=== PATIENT | female | born 1995 | race Caucasian/White ===

== ENCOUNTER 2017-06-29 19:35 | Emergency (ER) | payer OTHER ==
[2017-06-29 19:43] VITALS: BP 140/83; PULSE 99; RESP 19; TEMP 98
[2017-06-29] MEDS ORDERED: CEPHALEXIN 500 MG CAP PO STA (20:11)
[2017-06-29] MEDS ORDERED: IBUPROFEN 600 MG TAB PO STA (20:11)
--- NOTE | 2017-06-29 20:13 | ED ---
General Adult HPI - General Chief complaint: Abdominal Pain Stated complaint: Poss.infection Time Seen by Provider: 06/29/17 19:45 Source: patient Mode of arrival: ambulatory Limitations: no limitations - History of Present Illness Initial comments: 21-year-old female patient presents to the emergency department today for evaluation of her incision site. Patient states approximate one week ago the left and of the incision seemed to open and has been draining pus. She states that the area is tender to the touch. She underwent on 2017 with a doctor at [facility] in [place]. States things the been going well. She denies any abdominal pain with this. Denies any fevers or chills. Denies any nausea or vomiting. She denies any abnormal vaginal bleeding or discharge. Patient denies any recent rash, shortness breath, chest pain, diarrhea, constipation, back pain, numbness, tingling, dizziness, weakness , hematuria, dysuria, urinary urgency, urinary frequency, headache, visual changes, or any other complaints. - Related Data Previous Rx's Medication Instructions Recorded Cephalexin [Keflex] 500 mg PO Q6H #40 cap 06/29/17 Allergies Allergy/AdvReac Type Severity Reaction Status Date / Time latex Allergy Rash/Hives Verified 06/29/17 20:15 Penicillins Allergy Swelling Verified 06/29/17 20:15 Review of Systems ROS Statement: Those systems with pertinent positive or pertinent negative responses have been documented in the HPI. ROS Other: All systems not noted in ROS Statement are negative. Past Medical History Past Medical History: No Reported History History of Any Multi-Drug Resistant Organisms: None Reported Past Surgical History: Section Past Psychological History: Depression Smoking Status: Never smoker Past Alcohol Use History: None Reported Past Drug Use History: None Reported General Exam Limitations: no limitations General appearance: alert, in no apparent distress, other (This is a well- developed, well-nourished, nontoxic appearing adult female patient in no acute distress. Vital signs upon presentation are temperature 98.0F, pulse 99, respirations 19, blood pressure 140/83, pulse ox 100% on room air.) Eye exam: Present: normal appearance, PERRL, EOMI. Absent: scleral icterus, conjunctival injection, periorbital swelling ENT exam: Present: normal exam, normal oropharynx, mucous membranes moist Respiratory exam: Present: normal lung sounds bilaterally. Absent: respiratory distress, wheezes, rales, rhonchi, stridor Cardiovascular Exam: Present: regular rate, normal rhythm, normal heart sounds. Absent: systolic murmur, diastolic murmur, rubs, gallop, clicks GI/Abdominal exam: Present: soft, normal bowel sounds, other (There is a horizontal incision at the suprapubic area. The left and the incision does show an open wound with very small amount of drainage. Abdomen is soft and nontender around the area. There is mild surrounding erythema.). Absent: distended, tenderness, guarding, rebound, rigid Neurological exam: Present: alert, oriented X3, CN II-XII intact Psychiatric exam: Present: normal affect, normal mood Skin exam: Present: warm, dry, intact, normal color. Absent: rash Course Vital Signs 06/29/17 19:38 Temperature 98.0 F Pulse Rate 99 Respiratory 19 Rate Blood Pressure 140/83 O2 Sat by Pulse 100 Oximetry Medical Decision Making - Medical Decision Making 21-year-old female patient presented for evaluation of her incision site. Physical examination does reveal an open wound area to the left end of the incision. The site shows very minimal drainage. There is minimal surrounding erythema. We will start her on Keflex. We will discharge her home as she is afebrile and nontoxic. She is instructed to follow-up with her OB/ [facility] as soon as possible. She is instructed to return here immediately for any new, worsening, or concerning symptoms. Return parameters discussed in detail. She verbalizes understanding and agrees with this plan. Disposition Clinical Impression: Surgical wound infection Disposition: HOME SELF-CARE Condition: Good Instructions: Acute Wound Care (ED) Additional Instructions: Take antibiotic prescription in full. Continue taking ibuprofen for pain control. Keep wound clean and dry. Follow up with your OBGYN as soon as possible. Return here immediately for any new, worsening, or concerning symptoms. Prescriptions: Cephalexin [Keflex] 500 mg PO Q6H #40 cap Referrals: None,Stated [Primary Care Provider] - 1-2 days Time of Disposition: 20:13
== END 2017-06-29 20:33 | disposition home or self-care (01) ==
LOC: EC 19:35
DX: T81.4XXA Infection following a procedure, initial encounter (principal); Z88.0 Allergy status to penicillin; Z91.040 Latex allergy status; Z98.890 Other specified postprocedural states
CPT/HCPCS: 87070; 87077; 87186; 87205; 99284

== ENCOUNTER 2020-08-19 14:16 | Emergency (ER) | payer OTHER ==
[2020-08-19 14:26] VITALS: RESP 18
[2020-08-19 15:21] LABS: Appearance,Urine Clear (Clear); Bacteria,Urine Rare /hpf; Bilirubin,Urine Negative (Negative); Blood,Urine Negative (Negative); Color,Urine Yellow; Glucose,Urine (UA) Negative (Negative); Ketones,Urine Negative (Negative); Leukocyte Esterase,Urine Large (Negative); Mucus,Urine Rare /hpf; Nitrite,Urine Negative (Negative); PH, Urine 6.5 (5.0-8.0); Protein,Urine Negative (Negative); RBC,Urine 2 /hpf (0-5); Specific Gravity,Urine 1.027 (1.001-1.035); Squamous Epithelial Cell,Urine 7 /hpf (0-4); Urobilinogen,Urine <2.0 mg/dL (<2.0); WBC,Urine 20 /hpf (0-5)
[2020-08-19 15:24] LABS: Basophils % (A) 0 %; Eosinophils % (A) 1 %; HCT 42.3 % (34.0-46.0); HGB 14.5 gm/dL (11.4-16.0); Lymphocytes # (A) 2.1 k/uL (1.0-4.8); Lymphocytes % (A) 31 %; MCH 29.1 pg (25.0-35.0); MCHC 34.3 g/dL (31.0-37.0); MCV 84.7 fL (80.0-100.0); Mean Platelet Volume 6.8; Monocytes # (A) 0.5 k/uL (0-1.0); Monocytes % (A) 7 %; Neutrophils # (A) 4.1 k/uL (1.3-7.7); Neutrophils % (A) 60 %; Platelet Count 228 k/uL (150-450); RBC 4.99 m/uL (3.80-5.40); WBC 6.9 k/uL (3.8-10.6)
[2020-08-19 15:34] LABS: ALT 17 U/L (4-34); AST 25 U/L (14-36); African American GFR (CKD) >90 (>60 ml/min/1.73 sqM); Albumin 4.7 g/dL (3.5-5.0); Alkaline Phosphatase 71 U/L (38-126); Amylase 54 U/L (30-110); Anion Gap 8 mmol/L; Blood Urea Nitrogen 13 mg/dL (7-17); Calcium 9.7 mg/dL (8.4-10.2); Carbon Dioxide 28 mmol/L (22-30); Chloride 104 mmol/L (98-107); Glucose 97 mg/dL (74-99); Lipase 145 U/L (23-300); Non-African American GFR(CKD) >90 (>60 ml/min/1.73 sqM); Potassium 3.5 mmol/L (3.5-5.1); Sodium 140 mmol/L (137-145); Total Bilirubin 0.5 mg/dL (0.2-1.3)
[2020-08-19 15:51] LABS: HCG,Quantitative Serum <2.4 mIU/mL
--- NOTE | 2020-08-19 16:29 | US ---
EXAMINATION TYPE: US transvaginal DATE OF EXAM: 08/19/2020 COMPARISON: NONE CLINICAL HISTORY: abdominal pain. Pelvic pain TECHNIQUE: Transvaginal (TV). Date of LMP: 07/26/2020 EXAM MEASUREMENTS: Uterus: 7.6 x 4.0 x 4.8 cm Endometrial Stripe: .7 cm Right Ovary: 2.4 x 1.3 x 1.8 cm Left Ovary: 2.4 x 1.6 x 1.9 cm 1. Uterus: Anteverted wnl 2. Endometrium: wnl 3. Right Ovary: wnl 4. Left Ovary: wnl Spectral, color and waveform doppler imaging shows good arterial and venous flow within the ovaries . 5. Bilateral Adnexa: wnl 6. Posterior cul-de-sac: wnl Endometrial stripe within normal limits for secretory phase of menstrual cycle. Heterogeneous normal size uterus. Both ovaries seen with scattered small peripheral follicles. No adnexal masses noted. IMPRESSION: Unremarkable study.
--- NOTE | 2020-08-19 16:35 | ED ---
General Adult HPI - General Chief complaint: Abdominal Pain Stated complaint: abdominal pain Time Seen by Provider: 08/19/20 14:44 Source: patient Mode of arrival: ambulatory Limitations: no limitations - History of Present Illness Initial comments: 24-year-old female presents to the emergency room for a chief complaint of lower abdominal pain. Patient reports this has been ongoing for 11 days now. States it feels like menstrual cramping. Patient states she is due to start her cycle in 6 days. Patient states it comes and goes but today to sensitivity going away. Patient denies fevers. Denies back pain. Denies nausea vomiting diarrhea. Patient denies any vaginal discharge or concern for STDs. Patient denies any chance of . States she had 2 negatives already. Patient has no other complaints at this time including shortness of breath, chest pain, nausea or vomiting, headache, or visual changes. - Related Data Previous Rx's Medication Instructions Recorded Sulfamethox-Tmp 800-160Mg [Bactrim 1 tab PO Q12HR #10 tab 08/19/20 DS 800-160 mg] Allergies Allergy/AdvReac Type Severity Reaction Status Date / Time latex Allergy Rash/Hives Verified 08/19/20 15:56 Penicillins Allergy Swelling Verified 08/19/20 15:56 Review of Systems ROS Statement: Those systems with pertinent positive or pertinent negative responses have been documented in the HPI. ROS Other: All systems not noted in ROS Statement are negative. Past Medical History Past Medical History: No Reported History History of Any Multi-Drug Resistant Organisms: None Reported Date of last positivie culture/infection: 06/29/17 MDRO Source:: ABDOMEN Past Surgical History: Section Past Psychological History: Depression Smoking Status: Never smoker Past Alcohol Use History: None Reported Past Drug Use History: None Reported General Exam Limitations: no limitations General appearance: alert, in no apparent distress Head exam: Present: atraumatic, normocephalic, normal inspection Eye exam: Present: normal appearance, PERRL, EOMI. Absent: scleral icterus, conjunctival injection, periorbital swelling ENT exam: Present: normal exam, mucous membranes moist Neck exam: Present: normal inspection, full ROM. Absent: tenderness, meningismus, lymphadenopathy Respiratory exam: Present: normal lung sounds bilaterally. Absent: respiratory distress, wheezes, rales, rhonchi, stridor Cardiovascular Exam: Present: regular rate, normal rhythm, normal heart sounds. Absent: systolic murmur, diastolic murmur, rubs, gallop, clicks GI/Abdominal exam: Present: soft, tenderness (Generalized minimal lower abdominal tenderness without guarding or rebound. No upper abdominal tenderness.), normal bowel sounds. Absent: distended, guarding, rebound, rigid Neurological exam: Present: alert Course Vital Signs 08/19/20 14:22 Temperature 97.9 F Pulse Rate 80 Respiratory 18 Rate Blood Pressure 145/95 O2 Sat by Pulse 99 Oximetry Medical Decision Making - Medical Decision Making Vitals are stable. Patient is afebrile. Physical exam pertinent for minimal lower abdominal tenderness without guarding or rebound. CBC is unremarkable. White count is normal at 6. CMP is unremarkable. HCG is negative. Urinalysis does show some possible evidence of urinary tract infection and patient will be treated accordingly. Ultrasound was obtained which was unremarkable. No evidence of torsion or cysts. At this time patient is afebrile with a normal white count with symptoms ongoing for 11 days, I do not currently suspect appendicitis. Patient is stable for outpatient follow-up. She'll follow up with primary care. She has an appointment tomorrow morning. She'll return here for any worsening symptoms. I discussed this case with attending Dr. Mendoza who agrees with this assessment and treatment plan. - Lab Data Result diagrams: 08/19/20 15:11 08/19/20 15:11 Lab Results 08/19/20 08/19/20 08/19/20 Range/Units 14:48 14:48 15:11 WBC 6.9 (3.8-10.6) k/uL RBC 4.99 (3.80-5.40) m/uL Hgb 14.5 (11.4-16.0) gm/dL Hct 42.3 (34.0-46.0) % MCV 84.7 (80.0-100.0) fL MCH 29.1 (25.0-35.0) pg MCHC 34.3 (31.0-37.0) g/dL RDW 13.0 (11.5-15.5) % Plt Count 228 (150-450) k/uL MPV 6.8 Neutrophils % 60 % Lymphocytes % 31 % Monocytes % 7 % Eosinophils % 1 % Basophils % 0 % Neutrophils # 4.1 (1.3-7.7) k/uL Lymphocytes # 2.1 (1.0-4.8) k/uL Monocytes # 0.5 (0-1.0) k/uL Eosinophils # 0.0 (0-0.7) k/uL Basophils # 0.0 (0-0.2) k/uL Sodium (137-145) mmol/L Potassium (3.5-5.1) mmol/L Chloride (98-107) mmol/L Carbon Dioxide (22-30) mmol/L Anion Gap mmol/L BUN (7-17) mg/dL Creatinine (0.52-1.04) mg/dL Est GFR (CKD-EPI)AfAm (>60 ml/min/1.73 sqM) Est GFR (CKD-EPI)NonAf (>60 ml/min/1.73 sqM) Glucose (74-99) mg/dL Calcium (8.4-10.2) mg/dL Total Bilirubin (0.2-1.3) mg/dL AST (14-36) U/L ALT (4-34) U/L Alkaline Phosphatase (38-126) U/L Total Protein (6.3-8.2) g/dL Albumin (3.5-5.0) g/dL Amylase (30-110) U/L Lipase (23-300) U/L HCG, Quant mIU/mL Urine Color Yellow Urine Appearance Clear (Clear) Urine pH 6.5 (5.0-8.0) Ur Specific [place] 1.027 (1.001-1.035) Urine Protein Negative (Negative) Urine Glucose (UA) Negative (Negative) Urine Ketones Negative (Negative) Urine Blood Negative (Negative) Urine Nitrite Negative (Negative) Urine Bilirubin Negative (Negative) Urine Urobilinogen <2.0 (<2.0) mg/dL Ur Leukocyte Esterase Large H (Negative) Urine RBC 2 (0-5) /hpf Urine WBC 20 H (0-5) /hpf Ur Squamous Epith Cells 7 H (0-4) /hpf Urine Bacteria Rare H (None) /hpf Urine Mucus Rare H (None) /hpf Urine HCG, Qual Not Detected (Not Detectd) 08/19/20 Range/Units 15:11 WBC (3.8-10.6) k/uL RBC (3.80-5.40) m/uL Hgb (11.4-16.0) gm/dL Hct (34.0-46.0) % MCV (80.0-100.0) fL MCH (25.0-35.0) pg MCHC (31.0-37.0) g/dL RDW (11.5-15.5) % Plt Count (150-450) k/uL MPV Neutrophils % % Lymphocytes % % Monocytes % % Eosinophils % % Basophils % % Neutrophils # (1.3-7.7) k/uL Lymphocytes # (1.0-4.8) k/uL Monocytes # (0-1.0) k/uL Eosinophils # (0-0.7) k/uL Basophils # (0-0.2) k/uL Sodium 140 (137-145) mmol/L Potassium 3.5 (3.5-5.1) mmol/L Chloride 104 (98-107) mmol/L Carbon Dioxide 28 (22-30) mmol/L Anion Gap 8 mmol/L BUN 13 (7-17) mg/dL Creatinine 0.55 (0.52-1.04) mg/dL Est GFR (CKD-EPI)AfAm >90 (>60 ml/min/1.73 sqM) Est GFR (CKD-EPI)NonAf >90 (>60 ml/min/1.73 sqM) Glucose 97 (74-99) mg/dL Calcium 9.7 (8.4-10.2) mg/dL Total Bilirubin 0.5 (0.2-1.3) mg/dL AST 25 (14-36) U/L ALT 17 (4-34) U/L Alkaline Phosphatase 71 (38-126) U/L Total Protein 8.0 (6.3-8.2) g/dL Albumin 4.7 (3.5-5.0) g/dL Amylase 54 (30-110) U/L Lipase 145 (23-300) U/L HCG, Quant <2.4 mIU/mL Urine Color Urine Appearance (Clear) Urine pH (5.0-8.0) Ur Specific [place] (1.001-1.035) Urine Protein (Negative) Urine Glucose (UA) (Negative) Urine Ketones (Negative) Urine Blood (Negative) Urine Nitrite (Negative) Urine Bilirubin (Negative) Urine Urobilinogen (<2.0) mg/dL Ur Leukocyte Esterase (Negative) Urine RBC (0-5) /hpf Urine WBC (0-5) /hpf Ur Squamous Epith Cells (0-4) /hpf Urine Bacteria (None) /hpf Urine Mucus (None) /hpf Urine HCG, Qual (Not Detectd) Disposition Clinical Impression: Abdominal pain, UTI (urinary tract infection) Disposition: HOME SELF-CARE Condition: Good Instructions (If sedation given, give patient instructions): Abdominal Pain (ED) Additional Instructions: Please take Motrin and Tylenol for pain. Please follow-up with your doctor in 1-2 days. Return to the emergency room for any worsening symptoms. Prescriptions: Sulfamethox-Tmp 800-160Mg [Bactrim DS 800-160 mg] 1 tab PO Q12HR #10 tab Is patient prescribed a controlled substance at d/c from ED?: No Referrals: Dunia Rush DO [Primary Care Provider] - 1-2 days Time of Disposition: 16:38
[2020-08-19] MEDS ORDERED: SULFAMETH-TMP DS STARTER PACK 2 TAB BTL PO STA (16:42)
[2020-08-19] MEDS ORDERED: KETOROLAC 15 MG/ML 1 ML VIAL IVP STA (16:46)
[2020-08-19 17:02] VITALS: BP 120/81; PULSE 92; TEMP 98
[2020-08-20 15:00] LABS: C. trachomatis,PCR Negative (Neg,Equiv); Chlamydia trachomatis Source Urine; N. gonorrhoeae,PCR Negative (Neg,Equiv); Neisseria Source Urine
== END 2020-08-19 17:03 | disposition home or self-care (01) ==
LOC: EC 14:16 → SUPCPDRO 14:16 → EC 17:03
DX: N39.0 Urinary tract infection, site not specified (principal); F32.9 Major depressive disorder, single episode, unspecified; Z88.0 Allergy status to penicillin
CPT/HCPCS: 36415; 80053; 82150; 83690; 85025; 81001; 81025; 84702; 87491; 87591; 87086; 93975; 76830; 99284; 96374; J1885

== ENCOUNTER 2021-07-05 16:05 | Outpatient (CLI) | payer OTHER ==
[2021-07-05 17:08] LABS: Appearance,Urine Cloudy (Clear); Bacteria,Urine Few /hpf; Bilirubin,Urine Negative (Negative); Blood,Urine Negative (Negative); Color,Urine Yellow; Glucose,Urine (UA) Negative (Negative); Ketones,Urine 2+ (Negative); Leukocyte Esterase,Urine Large (Negative); Mucus,Urine Many /hpf; Nitrite,Urine Negative (Negative); Protein,Urine 1+ (Negative); RBC,Urine 3 /hpf (0-5); Specific Gravity,Urine 1.033 (1.001-1.035); Squamous Epithelial Cell,Urine 21 /hpf (0-4); WBC,Urine 53 /hpf (0-5)
[2021-07-05 17:56] VITALS: BP 132/76; PULSE 90; RESP 18; TEMP 97.3
--- NOTE | 2021-07-05 18:02 | P.MSEPDOC ---
Presenting Problems - Arrival Data Date of Arrival on Unit: 07/05/21 Time of Arrival on Unit: 16:00 Mode of Transport: Ambulatory - Complaint OB-Reason for Admission/Chief Complaint: Pain Comment: Leg pain - groin, low abdominal pain, bruised feeling in the bladder, vaginal pain. Medical History - Information : 3 Para: 2 Term: 1 : 1 Abortions: Spontaneous or Elective: 0 Number of Living Children: 2 - Gestational Age Gestational Age by ROSALINA (wks/days): 26 Weeks and 0 Days - History Complications: Prior , Prior Review of Systems - Review of Systems Constitutional: No problems Breast: No problems ENT: No problems Cardiovascular: No problems Respiratory: No problems Gastrointestinal: No problems Genitourinary: No problems Musculoskeletal: No problems Neurological: No problems Skin: No problems Vital Signs - Temperature Temperature: 97.3 F Temperature Source: Temporal Artery Scan - Pulse Right Sitting Brachial Pulse Rate: 90 Pulse Assessment Method: Automatic Cuff - Respirations Respiratory Rate: 18 Oxygen Delivery Method: Room Air O2 Sat by Pulse Oximetry: 100 - Blood Pressure Right Arm Sitting Blood Pressure: 132/76 Blood Pressure Mean: 94 Blood Pressure Source: Automatic Cuff Medical Screen Scoring - Cervical Exam Dilation (cm): 0 Effacement (%): 0 Station: -3 - Assessment - Baby A Baseline FHR: 140 Heart Rate - NICHD Category: Category I (Normal) NST: Reactive Physician Notification - Physician Notified Physician Notified Date: 07/05/21 Physician Notified Time: 17:40 Physician: Ashia Gutierrez New Order Received: Yes - Notification Comment Comment: Cervix closed, UA results reviewed. Ok to dc home, increase po fluids, rest, tylenol as directed and follow up with Dr Sauer as scheduled. Maternal Triage Index - Maternal Triage Index Presenting for scheduled procedure w/no complaint: No - Stat/Priority 1 Stat Priority 1: No - Urgent/Priority 2 Urgent Priority 2: No - Prompt/Priority 3 Prompt Priority 3: No - Non-Urgent/Priority 4 Non-Urgent Priority 4: No - Scheduled/Requesting Priority 5 Scheduled/Requesting Priority 5: No Disposition - Disposition OB Disposition: Discharge to home Discharge Date: 07/05/21 Discharge Time: 17:45 I agree with the RN Medical Screening Exam: Yes Case reviewed; plan agreed upon as documented in EMR&OBIX.: Yes Diagnosis: RELATED CONDITIONS, UNSPECIFIED, SECOND TRIMESTER
== END 2021-07-05 17:45 | disposition home or self-care (01) ==
LOC: FBPOP 16:05
PROVIDERS: ATTEND Obstetrics & Gynecology
DX: O26.892 Other specified pregnancy related conditions, second trimester (principal); R10.30 Lower abdominal pain, unspecified; R10.2 Pelvic and perineal pain; Z3A.26 26 weeks gestation of pregnancy; Z91.040 Latex allergy status; Z88.0 Allergy status to penicillin
CPT/HCPCS: 81001; 99213

== ENCOUNTER 2021-08-22 15:05 | Outpatient (CLI) | payer OTHER ==
[2021-08-22 17:23] VITALS: BP 129/71; PULSE 90; RESP 16; TEMP 98.5
--- NOTE | 2021-08-25 08:53 | P.MSEPDOC ---
Presenting Problems - Arrival Data Date of Arrival on Unit: 08/22/21 Time of Arrival on Unit: 15:13 Mode of Transport: Wheelchair - Complaint OB-Reason for Admission/Chief Complaint: Other Comment: pt arrived c/o tripping on dogs water dish and fall pt has a scuff on her right knee and left hand. pt also c/o some mucus pinkish discharge when she wiped and c/o some mild cramping Medical History - Information : 3 Para: 2 Term: 1 : 1 Number of Living Children: 2 - Gestational Age Gestational Age by ROSALINA (wks/days): 32 Weeks and 5 Days Review of Systems - Review of Systems Constitutional: No problems Breast: No problems ENT: No problems Cardiovascular: No problems Respiratory: No problems Gastrointestinal: No problems Genitourinary: No problems Musculoskeletal: No problems Neurological: No problems Skin: No problems Vital Signs - Temperature Temperature: 98.5 F Temperature Source: Oral - Pulse Right Brachial Pulse Rate: 90 Pulse Assessment Method: Automatic Cuff - Respirations Respiratory Rate: 16 Oxygen Delivery Method: Room Air O2 Sat by Pulse Oximetry: 98 - Blood Pressure Right Arm Blood Pressure: 129/71 Blood Pressure Mean: 90 Blood Pressure Source: Automatic Cuff Medical Screen Scoring - Cervical Exam Dilation (cm): 0.5 Effacement (%): 50 Membranes: Intact - Uterine Contractions Frequency From (mins): 0 Frequency To (mins): 0 Duration From (seconds): 0 Resting: Soft to palpation - Assessment - Baby A Baseline FHR: 140 Heart Rate - NICHD Category: Category I (Normal) Physician Notification - Physician Notified Physician Notified Date: 08/22/21 Physician Notified Time: 16:23 Physician: Dr Sauer New Order Received: Yes - Notification Comment Comment: may discharged to home with instructions Maternal Triage Index - Urgent/Priority 2 Urgent Priority 2: Yes Provider Notified: Dr Sauer Provider Notified Time: 16:23 Criteria Met for Priority 2: pt 32 5/7 weeks abd soft no active bleeding. reactive NST CERVIX FT THICK WITH NO blood noted on exam glove. pt discharged with instructions and to keep f/u appointment with Dr Sauer Disposition - Disposition OB Disposition: Discharge to home Discharge Date: 08/22/21 Discharge Time: 17:09 I agree with the RN Medical Screening Exam: Yes Case reviewed; plan agreed upon as documented in EMR&OBIX.: Yes Diagnosis: FALL SAME LEV FROM SLIP/TRIP W/O STRIKE AGAINST OBJECT, INIT
== END 2021-08-22 17:09 | disposition home or self-care (01) ==
LOC: FBPOP 15:05
PROVIDERS: ATTEND Obstetrics & Gynecology
DX: O9A.213 Injury, poisoning and certain other consequences of external causes complicating pregnancy, third trimester (principal); S80.211A Abrasion, right knee, initial encounter; N89.8 Other specified noninflammatory disorders of vagina; Z3A.32 32 weeks gestation of pregnancy; Z88.0 Allergy status to penicillin; Z91.040 Latex allergy status
CPT/HCPCS: 59025; G0463; 99213

== ENCOUNTER 2021-09-19 15:55 | Inpatient (IN) | payer OTHER ==
[2021-09-19] MEDS ORDERED: CITRIC ACID-SODIUM CITRATE 15 ML CUP PO ONE (17:36)
[2021-09-19 18:19] LABS: Basophils % (A) 0 %; Eosinophils % (A) 0 %; HCT 35.6 % (34.0-46.0); HGB 11.9 gm/dL (11.4-16.0); Lymphocytes # (A) 1.3 k/uL (1.0-4.8); Lymphocytes % (A) 17 %; MCH 28.7 pg (25.0-35.0); MCHC 33.4 g/dL (31.0-37.0); MCV 86.1 fL (80.0-100.0); Mean Platelet Volume 7.4; Monocytes # (A) 0.5 k/uL (0-1.0); Monocytes % (A) 7 %; Neutrophils # (A) 5.6 k/uL (1.3-7.7); Neutrophils % (A) 72 %; Platelet Count 242 k/uL (150-450); RBC 4.13 m/uL (3.80-5.40); RDW 14.5 % (11.5-15.5); WBC 7.7 k/uL (3.8-10.6)
--- NOTE | 2021-09-19 18:26 | P.HPOB ---
History of Present Illness H&P Date: 09/19/21 Chief Complaint: Contractions This is a 25-year-old female 3 para 2 with an estimated date of confinement of 10/11/2021, estimated gestational age of 37-6/7 weeks, who presents to labor and delivery with complaints of contractions that have been every 5 minutes for the past few hours and are getting stronger. course has been essentially uncomplicated. She has had a lot of pelvic and lower abdominal pain throughout her . Her last was complicated by an emergency classical section for twins at 28 weeks. labs: Hepatitis B surface antigen-negative RPR-nonreactive Rubella-immune Blood type-B+ Antibody screen-negative HIV-nonreactive Hemoglobin-12.3 Random glucose-86 GC/chlamydia/trickle on his-negative One hour Glucola-96 Group B streptococcus-positive Obstetrical history: She 3 P2. History of 1 vaginal delivery at term without complication. Her second was complicated by the emergency classical at 28 weeks for twin gestation with twin-twin transfusion. Gynecologic history: No history of sexual transmitted diseases Social history: She is . She works part-time self-employed working from home. Review of Systems Constitutional: Denies chills, Denies fever Eyes: denies blurred vision, denies pain Ears, nose, mouth and throat: Denies headache, Denies sore throat Cardiovascular: Denies chest pain, Denies shortness of breath Respiratory: Denies cough Gastrointestinal: Reports abdominal pain Genitourinary: Reports pelvic pain, Reports Musculoskeletal: Reports low back pain Integumentary: Denies pruritus, Denies rash Neurological: Denies numbness, Denies weakness Psychiatric: Denies anxiety, Denies depression Past Medical History Past Medical History: No Reported History History of Any Multi-Drug Resistant Organisms: None Reported Date of last positivie culture/infection: 06/29/17 MDRO Source:: ABDOMEN Past Surgical History: Section Past Psychological History: No Psychological Hx Reported Smoking Status: Never smoker Past Alcohol Use History: None Reported Past Drug Use History: None Reported - Past Family History Mother Family Medical History: Hypertension Medications and Allergies Home Medications Medication Instructions Recorded Confirmed Type No Known Home Medications 08/22/21 09/19/21 History Allergies Allergy/AdvReac Type Severity Reaction Status Date / Time latex Allergy Rash/Hives Verified 08/22/21 15:20 Penicillins Allergy Anaphylaxis Verified 09/19/21 16:12 Exam Osteopathic Statement: *. No significant issues noted on an osteopathic structural exam other than those noted in the History and Physical/Consult. Intake and Output 09/19/21 09/19/21 09/19/21 06:59 14:59 22:59 Other: Weight 88.451 kg HEENT: Within normal limits Heart: Regular rate and rhythm Lungs: Clear to auscultation bilaterally Abdomen: Cervix: Initially in triage she was 1-1/2 cm and now is 3 cm/60%/-2 station heart tones: Category 1 Contractions: Every 3-5 minutes Extremities: Negative Homans Assessment and Plan (1) 37 weeks gestation of Current Visit: Yes Status: Acute Code(s): Z3A.37 - 37 WEEKS GESTATION OF SNOMED Code(s): 86710263 (2) Previous delivery affecting Current Visit: Yes Status: Acute Code(s): O34.219 - MATERNAL CARE FOR UNSP TYPE SCAR FROM PREVIOUS DEL SNOMED Code(s): 826068342 Plan: Admission for repeat section due to previous classical section and active labor. I have discussed the risks, benefits, and alternative therapies for the above- mentioned procedure and for both sedation/anesthesia as well as necessary blood products administration, if indicated, as they pertain to this patient. The patient has indicated her understanding and acceptance of the risks and procedures discussed.
[2021-09-19] MEDS ORDERED: OXYTOCIN 10 UNIT/ML 1 ML VIAL ONE (18:30)
[2021-09-19] MEDS ORDERED: KETOROLAC 15 MG/ML 1 ML VIAL ONE (18:30)
[2021-09-19] MEDS ORDERED: LACTATED RINGERS 1,000 ML IV ONE (18:30)
[2021-09-19] MEDS ORDERED: MORPHINE SULFATE (PF) 0.3 MG/0.3 ML SYR ONE (18:30)
[2021-09-19] MEDS ORDERED: ONDANSETRON 4 MG/2 ML VIAL ONE (18:30)
[2021-09-19] MEDS ORDERED: HYDROmorphone 0.5 MG/0.5 ML SYRINGE IVP PRN ×2 (18:57→19:55)
[2021-09-19] MEDS ORDERED: ONDANSETRON 4 MG/2 ML VIAL IVP PRN ×2 (18:57→19:55)
[2021-09-19] MEDS ORDERED: diphenhydrAMINE 50 MG/ML 1 ML VIAL IVP PRN ×3 (18:57→19:55)
[2021-09-19] MEDS ORDERED: NALOXONE 0.4 MG/ML 1 ML VIAL IV PRN ×2 (18:57→19:55)
--- NOTE | 2021-09-19 19:22 | P.OP ---
Date of Procedure: 09/19/21 Preoperative Diagnosis: 1. Intrauterine at 36-6/7 weeks. 2. Previous classical . 3. Active labor. Postoperative Diagnosis: Same Procedure(s) Performed: Repeat low transverse section Anesthesia: spinal (Duramorph) Surgeon: Danica Sauer Medical Manager #1: Mony Diaz Estimated Blood Loss (ml): 500 Pathology: none sent Condition: stable Disposition: floor Indications for Procedure: This is a 25-year-old female 3 para 2 at 36-6/7 weeks who presented in active labor with complaints of contractions every 5 minutes for several hours. Upon arrival to triage she made cervical change from 1-1/2-3 cm within an hour's time and was breathing through her contractions. She denied any rupture of membranes. She does have a history of a previous classical section due to twin gestation at 28 weeks with her previous . I have discussed the risks, benefits, and alternative therapies for the above- mentioned procedure and for both sedation/anesthesia as well as necessary blood products administration, if indicated, as they pertain to this patient. The patient has indicated her understanding and acceptance of the risks and procedures discussed. Operative Findings: A viable female is noted in the vertex presentation with scores of 8 at 1 minute and 9 at 5 minutes and infant weight of 5 lbs. 9 oz. Normal uterus tubes and ovaries are noted. There is noted to be some omental adhesions to the anterior abdominal wall and the lower uterine segment. Description of Procedure: The patient is taken to the operating room where she is placed in the dorsal supine position with leftward tilt after spinal Duramorph anesthesia is given. She is prepped and draped in the normal sterile fashion. Skin was tested and found to be adequately anesthetized. A Pfannenstiel skin incision was made with a scalpel. A second knife was used to carry the incision down to the underlying layer of fascia through the previous laparotomy scar. The fascia was nicked in the midline with a scalpel and then extended laterally bilaterally with Woo scissors. The anterior lip of the fascia was grasped with 2 Mary Alice clamps and then dissected off the underlying rectus muscle in the midline with Woo scissors. The inferior aspect of the fascial incision was grasped with 2 Mary Alice clamps and dissected off the underlying rectus muscle and the midline with Woo scissors. Omentum is noted to be adherent to the anterior abdominal wall. Peritoneum regarding then entered in the dissection of the rectus muscles. The incision is extended superiorly and inferiorly with Metzenbaum scissors. Next a DeLee retractor is placed. The vesicouterine peritoneum is entered sharply with Metzenbaum scissors and extended laterally bilaterally with Metzenbaum scissors and then the bladder flap is pushed inferiorly. There were several omental adhesions to the lower uterine segment that were removed with Bovie cautery. The lower uterine segment is incised in transverse fashion with the scalpel and then bluntly entered with a hemostat. Clear fluid is noted. The incision was then extended laterally bilaterally with 2 fingers. Next the infant's head is delivered through the incision. Nose and mouth are bulb suctioned. The remainder of the infant is easily delivered and placed on mother's abdomen. Cord is clamped and cut. Infant is taken to warmer by nursing staff. Uterine fundus is gently massaged and placenta is delivered manually. Uterus is exteriorized and cleared of all clots and debris. Uterine incision is closed with 0 Vicryl suture in a running locked fashion. A second layer of 0 Vicryl suture is used in a running fashion for hemostasis. A couple interrupted stitches are also placed above the incision on the uterine wall where previous adhesion had been removed. Due to the previous adhesions, the vesicouterine peritoneum was not reapproximated. Posterior cul-de-sac is suctioned of all clots and debris. Uterus is returned to the abdomen. Incision is noted to be hemostatic. A piece of Interceed is placed over the uterine incision to prevent adhesions. Peritoneal layer is closed with 0 Vicryl suture in a running fash ion. Muscle layer is reapproximated with 0 Vicryl suture in interrupted fashion. Fascia layer is then closed with 0 PDS suture with 2 sutures meeting in the midline and the knots buried in either side and in the midline. The subcutaneous tissue was then closed with 2-0 Vicryl suture. Skin layer was then closed with андрей. All sponge and needle counts are correct. The patient is taken to recovery room in stable condition.
[2021-09-19] MEDS: LACTATED RINGERS 1,000 ML IV SCH (19:25)
[2021-09-19] MEDS ORDERED: METOCLOPRAMIDE 5 MG/ML 2 ML VIAL IVP PRN (19:55)
[2021-09-19] MEDS ORDERED: HYDROmorphone 1 MG/ML 1 ML SYRINGE IVP PRN (19:55)
[2021-09-19] MEDS ORDERED: diphenhydrAMINE 50 MG CAP PO PRN (19:55)
[2021-09-19] MEDS ORDERED: LACTATED RINGERS 1,000 ML IV SCH (19:55)
[2021-09-19] MEDS ORDERED: ZOLPIDEM 5 MG TAB PO PRN (19:55)
[2021-09-19] MEDS ORDERED: LANOLIN CREAM 5 GM TUBE TOPICAL PRN (19:55)
[2021-09-19] MEDS ORDERED: SIMETHICONE 80 MG CHEWABLE PO PRN (19:55)
[2021-09-19] MEDS ORDERED: diphenhydrAMINE 25 MG CAP PO PRN (19:55)
[2021-09-19] MEDS ORDERED: OXYTOCIN 30 UNITS/500 ML NS 30 UNIT in SALINE 1 500ML.BAG IV SCH (19:55)
[2021-09-19] MEDS: SENNOSIDES-DOCUSATE SODIUM 1 EACH TAB PO SCH (21:00)
--- NOTE | 2021-09-19 21:40 | P.MSEPDOC ---
Presenting Problems - Arrival Data Date of Arrival on Unit: 09/19/21 Time of Arrival on Unit: 15:55 Mode of Transport: Ambulatory - Complaint OB-Reason for Admission/Chief Complaint: Possible Onset of Labor Comment: pt presents to triage for contractions and tighening in abdomen Medical History - Information : 3 Para: 3 Term: 1 : 2 - Gestational Age Gestational Age by ROSALINA (wks/days): 36 Weeks and 6 Days - History Complications: Prior , Prior Comment: classical scar with previous section for twins, both delivered at 26 weeks, baby B passed after delivery Review of Systems - Review of Systems Constitutional: No problems Breast: No problems ENT: No problems Cardiovascular: No problems Respiratory: No problems Gastrointestinal: No problems Genitourinary: No problems Musculoskeletal: No problems Neurological: No problems Skin: No problems Vital Signs - Temperature Temperature: 97.8 F Temperature Source: Temporal Artery Scan - Pulse Right Brachial Pulse Rate: 85 Pulse Assessment Method: Pulse Oximetry - Respirations Respiratory Rate: 16 Oxygen Delivery Method: Room Air O2 Sat by Pulse Oximetry: 99 - Blood Pressure Right Arm Blood Pressure: 107/57 Blood Pressure Mean: 73 Blood Pressure Source: Automatic Cuff Medical Screen Scoring - Cervical Exam Dilation (cm): 3 Effacement (%): 50 Station: -2 Membranes: Intact - Uterine Contractions Frequency From (mins): 3 Frequency To (mins): 7 Duration From (seconds): 50 Duration To (seconds): 80 Intensity: Mild Resting: Soft to palpation - Assessment - Baby A Baseline FHR: 135 Heart Rate - NICHD Category: Category I (Normal) NST: Reactive Physician Notification - Physician Notified Physician Notified Date: 09/19/21 Physician Notified Time: 17:35 Physician: Danica Sauer Order Received: Yes - Notification Comment Comment: pt made cervical change while in triage, admitted for labor and will have repeat section delivery performed by Dr. Sauer, she is coming in, pt will be preped for OR Maternal Triage Index - Maternal Triage Index Presenting for scheduled procedure w/no complaint: No - Stat/Priority 1 Stat Priority 1: No - Urgent/Priority 2 Urgent Priority 2: No - Prompt/Priority 3 Prompt Priority 3: Yes Criteria Met for Priority 3: pt presents to triage for contractions that are 5 min apart and painful, pt GA 36 6/7 Disposition - Disposition OB Disposition: Admit I agree with the RN Medical Screening Exam: Yes Case reviewed; plan agreed upon as documented in EMR&OBIX.: Yes Diagnosis: MATERNAL CARE FOR VERTICAL SCAR FROM PREVIOUS DEL
[2021-09-19] MEDS: ACETAMINOPHEN TAB 500 MG TAB PO SCH (22:35)
[2021-09-20] MEDS ORDERED: ACETAMINOPHEN IV (For NPO) 1,000 MG in EMPTY BAG 1 BAG IVPB PRN
[2021-09-20] MEDS: LACTATED RINGERS 1,000 ML IV SCH (02:29)
[2021-09-20] MEDS: KETOROLAC 15 MG/ML 1 ML VIAL IVP PRN ×2 (02:48→15:28)
[2021-09-20] MEDS: IBUPROFEN 600 MG TAB PO SCH ×5 (05:48→21:25)
[2021-09-20] MEDS ORDERED: KETOROLAC 15 MG/ML 1 ML VIAL IVP PRN (06:00)
[2021-09-20] MEDS: ACETAMINOPHEN TAB 500 MG TAB PO SCH ×4 (06:01→18:43)
[2021-09-20 07:48] LABS: Basophils % (A) 0 %; Eosinophils % (A) 1 %; HCT 34.5 % (34.0-46.0); HGB 11.3 gm/dL (11.4-16.0); Lymphocytes % (A) 13 %; MCH 28.6 pg (25.0-35.0); MCHC 32.8 g/dL (31.0-37.0); Mean Platelet Volume 7.9; Monocytes # (A) 0.4 k/uL (0-1.0); Monocytes % (A) 6 %; Neutrophils # (A) 6.2 k/uL (1.3-7.7); Neutrophils % (A) 80 %; Platelet Count 190 k/uL (150-450); RBC 3.96 m/uL (3.80-5.40); WBC 7.7 k/uL (3.8-10.6)
[2021-09-20] MEDS: SENNOSIDES-DOCUSATE SODIUM 1 EACH TAB PO SCH ×2 (08:23→21:26)
--- NOTE | 2021-09-20 09:22 | P.PN ---
Progress Note - Text Progress Note Date: 09/20/21 Postoperative day 1 status post section under spinal anesthesia, and i ntrathecal morphine given for postoperative analgesia, patient doing well, there is no anesthesia related complications, Patient had no headache, vital signs stable , Assessment and plan= postop day 1 status post , doing well there is no anesthesia related complication. note= patient was seen today at 7:15 in the morning.
--- NOTE | 2021-09-20 12:50 | P.PNOBGPC ---
Subjective - Subjective Principal diagnosis: This post repeat section postoperative day #1 Interval history: Patient is doing well. She is ambulating. Lochia is minimal. She is breast- feeding. She is passing some flatus but no bowel movement yet. She is having some lower cramping. Patient reports: Reports appetite normal, Reports voiding normally, Reports pain well controlled, Reports ambulating normally Whitmer: doing well, nursing well Objective - Vital Signs Latest vital signs: Vital Signs Temp Pulse Resp BP Pulse Ox 09/20/21 12:00 97.8 F 82 17 103/64 100 09/20/21 10:00 17 09/20/21 08:25 98.1 F 83 17 105/69 96 09/20/21 08:00 17 96 09/20/21 05:00 16 09/20/21 04:00 97.8 F 87 16 103/67 98 09/20/21 02:25 16 97 09/20/21 01:00 16 09/20/21 00:00 98.0 F 95 16 128/81 97 09/19/21 23:57 97 09/19/21 23:00 16 09/19/21 21:57 16 09/19/21 21:40 97.8 F 85 16 107/57 99 09/19/21 21:25 71 16 115/76 09/19/21 20:55 79 16 113/74 09/19/21 20:25 85 16 115/76 95 09/19/21 20:10 92 16 111/67 99 09/19/21 19:57 85 16 99 09/19/21 19:55 85 16 112/56 99 09/19/21 19:41 97.8 F 91 16 107/57 98 09/19/21 19:40 97.8 F 91 16 107/57 98 09/19/21 19:25 97.8 F 82 16 104/60 98 09/19/21 16:12 98.1 F 96 17 113/68 Intake and Output 09/19/21 09/20/21 09/20/21 22:59 06:59 14:59 Output Total 705 150 400 Balance -705 -150 -400 Output: Urine 100 150 400 Estimated Blood Loss 500 Output, Quantitative 105 Blood Loss Other: Voiding Method Indwelling Catheter Indwelling Catheter Toilet Weight 88.451 kg - Exam Extremities: Present: normal. Absent: tenderness Abdomen: Present: normal appearance, soft (Positive bowel sounds 4). Absent: distention, tenderness Incision: Present: normal, dry, intact. Absent: erythematous Uterus: Present: normal, firm. Absent: tenderness - Labs Labs: Abnormal Lab Results - Last 24 Hours (Table) 09/20/21 Range/Units 07:28 Hgb 11.3 L (11.4-16.0) gm/dL Assessment and Plan Assessment: Status post repeat section postoperative day #1 (1) 37 weeks gestation of Current Visit: Yes Status: Acute Code(s): Z3A.37 - 37 WEEKS GESTATION OF SNOMED Code(s): 79188218 (2) Previous delivery affecting Current Visit: Yes Status: Acute Code(s): O34.219 - MATERNAL CARE FOR UNSP TYPE SCAR FROM PREVIOUS DEL SNOMED Code(s): 163323027 Plan: Continue with postoperative care today. Anticipate possible discharge home tomorrow. Will advance diet as tolerated after flatus.
[2021-09-21] MEDS: ACETAMINOPHEN TAB 500 MG TAB PO SCH ×2 (00:11→06:26)
[2021-09-21] MEDS: IBUPROFEN 600 MG TAB PO SCH ×2 (03:33→10:20)
[2021-09-21 07:59] VITALS: BP 108/72; PULSE 75; RESP 14; TEMP 98.4
--- NOTE | 2021-09-21 08:31 | P.DS ---
Providers Date of admission: 09/19/21 17:37 Expected date of discharge: 09/21/21 Attending physician: Danica Sauer Primary care physician: Stated None - Discharge Diagnosis(es) (1) 37 weeks gestation of Current Visit: Yes Status: Acute (2) Previous delivery affecting Current Visit: Yes Status: Acute Hospital Course: Since is a 25-year-old female 3 para 2 at 36-6/7 weeks who presented in active labor. She underwent a repeat low transverse section and delivered a viable female with scores of 8 at 1 minute and 9 at 5 minutes and infant weight of 5 lbs. 9 oz. on 09/19/2021. Postoperatively she has done well. Lochia has been decreasing. Her pain is well-controlled. She is passing flatus and feels like she has to have a bowel movement now. She is breast-feeding. Vital signs are stable. Abdomen is soft with fundus firm and nontender. Incision is clean dry and intact. Extremities show negative Homans. Impression is status post repeat low transverse section postoperative day #2. Plan is to discharge home today. Routine postoperative and instructions are given. She will be given a prescription for a breast pump and ibuprofen. She is advised to follow up in the office in about 2 weeks for a postoperative check and in 6 weeks for a check. She is advised to call the office if she has any further questions or concerns prior to her appointment time. Procedures: Repeat low transverse section on 09/19/2021 Patient Condition at Discharge: Stable Plan - Discharge Summary New Discharge Prescriptions: New Ibuprofen [Motrin] 600 mg PO Q6H #60 tab Discharge Medication List Ibuprofen [Motrin] 600 mg PO Q6H #60 tab 09/21/21 [Rx] Follow up Appointment(s)/Referral(s): Danica Sauer DO [Doctor of Osteopathic Medicine] - 11/03/21 11:30 am (c/s post op appt-10/07/2021@1:30pm) Activity/Diet/Wound Care/Special Instructions: Instructions 1. Do not begin any exercise program for 3 weeks. 2. Do not resume sexual relations for 3 weeks or longer if uncomfortable. 3. You may take tub baths or showers at any time. 4. You may use tampons if desired after 3 weeks. 5. Keep the area of episiotomy (stitches) clean and dry. 6. If you are not nursing, wear a good fitting, supportive bra during the day and limit fluid intake for at least 1 week to prevent breast engorgement. 7. Call the office, [phone], within the next week to make appointment for your 6 week checkup if it has not already been made. 8. Report any of the following occurrences to the doctor promptly: a. Heavy, excessive bleeding b. Chills, fever c. Burning or frequency of urination d. Pain or redness and breasts if nursing e. Increasing pain or swelling in episiotomy (stitches). In addition to the above instructions, the following additional should be followed: 1. No heavy lifting or straining (exercising) until after 6 week checkup. 2. Keep abdominal incision clean and dry: You may wear a dressing if more comfortable. 3. Make office appointment for 10 days after going home or as instructed by her doctor. Discharge Disposition: HOME SELF-CARE
[2021-09-21] MEDS: SENNOSIDES-DOCUSATE SODIUM 1 EACH TAB PO SCH (10:21)
== END 2021-09-21 11:45 | disposition home or self-care (01) | DRG 788 ==
LOC: FBPOP 15:55 → 4FBP 17:37
PROVIDERS: ADMIT Obstetrics & Gynecology; ATTEND Obstetrics & Gynecology
PROC: 10D00Z1 Extraction of Products of Conception, Low, Open Approach (ICD-10-PCS; principal; 2021-09-19 18:39)
DX: O34.211 Maternal care for low transverse scar from previous cesarean delivery (principal); Z3A.37 37 weeks gestation of pregnancy; K66.0 Peritoneal adhesions (postprocedural) (postinfection); Z82.49 Family history of ischemic heart disease and other diseases of the circulatory system
CPT/HCPCS: 59025; 85025; 86850; 86900; 86901; 99213

== ENCOUNTER → 2022-08-04 | Outpatient (CLI) | payer OTHER ==
[2022-08-04 21:25] LABS: Basophils # (A) 0.01 X 10*3/uL (0.00-0.10); Basophils % (A) 0.2 %; Eosinophils # (A) 0.06 X 10*3/uL (0.04-0.35); HCT 36.3 % (37.2-46.3); HGB 11.6 g/dL (12.0-15.0); Immature Grans, Automated 0.2 %; Lymphocytes # (A) 1.37 X 10*3/uL (0.90-5.00); Lymphocytes % (A) 22.8 %; MCV 84.6 fL (80.0-97.0); Mean Platelet Volume 9.6 fL (9.5-12.2); Monocytes # (A) 0.52 X 10*3/uL (0.20-1.00); Monocytes % (A) 8.7 %; NRBC Per 100 WBC 0 /100 WBCS (0.0-0.0); Neutrophils # (A) 4.04 X 10*3/uL (1.80-7.70); Neutrophils % (A) 67.1 %; Platelet Count 231 X 10*3/uL (140-440); RBC 4.29 X 10*6/uL (4.10-5.20); RDW 14.6 % (11.5-14.5); WBC 6.01 X 10*3/uL (4.50-10.00)
== END | disposition home or self-care (01) ==
LOC: LABPAT 12:27
PROVIDERS: ATTEND Obstetrics & Gynecology
DX: Z01.812 Encounter for preprocedural laboratory examination (principal)
CPT/HCPCS: 36415; 85025

== ENCOUNTER → 2022-08-04 | Outpatient (CLI) | payer OTHER ==
--- NOTE | 2022-08-04 14:07 | US ---
EXAMINATION TYPE: US pelvic complete DATE OF EXAM: 08/04/2022 COMPARISON: prior US in [facility] CLINICAL HISTORY: 26-year-old female O03.4 INCOMPLETE MISCARRIAGE. TECHNIQUE: Transabdominal sonographic images of the pelvis were acquired. Date of LMP: 03/31/2022 FINDINGS: EXAM MEASUREMENTS: Uterus: 8.1 x 4.2 x 5.1 cm Endometrial Stripe: 9.3mm Right Ovary: 2.8 x 2.2 x 1.7 cm Left Ovary: 2.1 x 2.3 x 1.6 cm 1. Uterus: Anteverted an otherwise wnl 2. Endometrium: Heterogeneous fluid and debris measuring 6 mm thick within the uterine cavity separa ting the endometrial stripes which measure up to 9 mm in thickness. No associated vascularity. 3. Right Ovary: wnl 4. Left Ovary: wnl 5. Bilateral Adnexa: wnl 6. Posterior cul-de-sac: no free fluid seen IMPRESSION: 1. 6 mm thick heterogeneous fluid and debris within the uterine cavity. No associated vascularity. Co nsider retained hemorrhagic debris and/or products of conception. 2. No pelvic free fluid. Follicular change of the ovaries.
== END | disposition home or self-care (01) ==
LOC: RADUSWWP 12:02
PROVIDERS: ATTEND Obstetrics & Gynecology
DX: O34.40 Maternal care for other abnormalities of cervix, unspecified trimester (principal)
CPT/HCPCS: 76856

== ENCOUNTER → 2022-08-05 | Day surgery (SDC) | payer OTHER ==
--- NOTE | 2022-08-04 15:28 | P.HPOB ---
History of Present Illness H&P Date: 08/04/22 Chief Complaint: Incomplete This is a 26 y.o. female, 4, para 3, who presents for suction dilatation and curettage due to incomplete . She began bleeding about 6 weeks ago and at that time, there was noted a gestational sac, but no pole yet. Her bleeding has continued off and on and her BHCG levels are dropping. Ultrasound did show possible retained products. Her blood type is B+ and her last BHCG level was 487. OB Hx: . History of 1 vaginal delivery and 2 c-sections (1 set of twins). Planning Rn Hx: No history of STDs Social Hx: . Self-employed. Review of Systems Constitutional: Denies chills, Denies fever Eyes: denies blurred vision, denies pain Ears, nose, mouth and throat: Denies headache, Denies sore throat Cardiovascular: Denies chest pain, Denies shortness of breath Respiratory: Denies cough Gastrointestinal: Reports abdominal pain Genitourinary: Reports abnormal vaginal bleeding, Reports Musculoskeletal: Denies myalgias Integumentary: Denies pruritus, Denies rash Neurological: Denies numbness, Denies weakness Psychiatric: Denies anxiety, Denies depression Endocrine: Denies fatigue, Denies weight change Past Medical History Past Medical History: No Reported History History of Any Multi-Drug Resistant Organisms: None Reported Date of last positivie culture/infection: 06/29/17 MDRO Source:: ABDOMEN Past Surgical History: Section Additional Past Surgical History / Comment(s): 2 c section Past Anesthesia/Blood Transfusion Reactions: No Reported Reaction Past Psychological History: No Psychological Hx Reported Smoking Status: Never smoker Past Alcohol Use History: None Reported Past Drug Use History: None Reported - Past Family History Mother Family Medical History: Hypertension Medications and Allergies Home Medications Medication Instructions Recorded Confirmed Type Vit No.179/Iron/Folic 1 each PO DAILY 60 Days #60 tab 06/05/22 08/05/22 Rx [ Tablet] Allergies Allergy/AdvReac Type Severity Reaction Status Date / Time latex Allergy Rash/Hives Verified 08/05/22 08:15 Penicillins Allergy Anaphylaxis Verified 08/05/22 08:15 Exam Osteopathic Statement: *. No significant issues noted on an osteopathic structural exam other than those noted in the History and Physical/Consult. Intake and Output 08/04/22 08/04/22 08/04/22 06:59 14:59 22:59 Other: Weight 0 g HEENT: within normal limits Heart: regular rate and rhythm Lungs: clear to auscultation bilaterally Abdomen: soft, mildly tender Pelvic: uterus anteverted, mildly tender, with no adnexal masses, scant bloody discharge Extremities: neg. Argelia's Assessment and Plan (1) Incomplete Current Visit: No Status: Acute Code(s): O03.4 - INCOMPLETE SPONTANEOUS WITHOUT COMPLICATION SNOMED Code(s): 377175369 Plan: Proceed with suction dilatation and curettage. I have discussed the risks, benefits, and alternative therapies for the above- mentioned procedure and for both sedation/anesthesia as well as necessary blood products administration, if indicated, as they pertain to this patient. The patient has indicated her understanding and acceptance of the risks and procedures discussed.
[~2022-08-05] MED LIST: DEXAMETHASONE SOD PHOSPHATE 4 MG/ML 1 ML VIAL IV ONE; HYDROmorphone 0.5 MG/0.5 ML SYRINGE IVP PRN; KETOROLAC 15 MG/ML 1 ML VIAL ONE; LACTATED RINGERS 1,000 ML IV SCH; LIDOCAINE 2% INJ 20 MG/ML (2 ML VIAL) ONE; MIDAZOLAM 2 MG/2 ML VIAL IV PRN; MIDAZOLAM 2 MG/2 ML VIAL ONE; ONDANSETRON 4 MG/2 ML VIAL IVP ONE; PROPOFOL 10 MG/ML 20 ML VIAL IV ONE; Pre Op ABX Message 1 EACH MISC MISCELLANE ONE; SCOPOLAMINE 1 MG/72 HR PATCH TRANSDERM ONE; fentaNYL (PF) 50 MCG/ML 2 ML AMP ONE
--- NOTE | 2022-08-05 09:30 | P.OP ---
Date of Procedure: 08/05/22 Preoperative Diagnosis: Incomplete Postoperative Diagnosis: Same Procedure(s) Performed: Suction dilation and curettage Anesthesia: SCAR Surgeon: Danica Sauer Estimated Blood Loss (ml): 25 Pathology: other (Products of conception) Condition: stable Disposition: same day Indications for Procedure: This is a 26 y.o. female, 4, para 3, who presents for suction dilatation and curettage due to incomplete . She began bleeding about 6 weeks ago and at that time, there was noted a gestational sac, but no pole yet. Her bleeding has continued off and on and her BHCG levels are dropping. Ultrasound did show possible retained products. Her blood type is B+ and her last BHCG level was 487. Operative Findings: Uterus is anteverted, sounded to 9 cm. A moderate amount of products of conception are obtained. No adnexal masses are palpated. Description of Procedure: Patient is taken to the operating room where she is placed in the dorsal lithotomy position. She is prepped and draped in the normal sterile fashion. Her bladder is drained with a catheter. Examination is performed under anesthesia. Uterus is found to be anteverted, no adnexal masses are palpated. Next a weighted speculum was placed in the patient's vagina. A right angle retractor was used to visualize the cervix. The anterior lip of the cervix is grasped with a Allis clamp. Next the uterus is sounded to 9 cm. Cervix is gently dilated with Schaefer dilators until an 8 mm curved suction curet to be placed. Suction curetting was performed with a moderate amount of tissue obtained. Next a sharp curet was gently introduced and sharp curetting was performed with no further tissue obtained. Suction curetting was performed one further time to remove any blood clots. The Allis clamp was removed and speculum was removed. At this point bleeding did appear to be moderate. Uterus is massaged and pressure is applied to the cervix. After about 5 minutes the gauze and pressure is removed and no active bleeding is noted. All instruments are given removed from the vagina and all sponge counts are correct. The patient is then taken to recovery room in stable condition.
[2022-08-05 09:42] VITALS: TEMP 96.8
[2022-08-05 10:40] VITALS: RESP 16
[2022-08-05 11:46] VITALS: BP 116/70; PULSE 72
== END | disposition home or self-care (01) ==
LOC: OR 07:57
PROVIDERS: ATTEND Obstetrics & Gynecology
DX: O03.4 Incomplete spontaneous abortion without complication (principal); Z82.49 Family history of ischemic heart disease and other diseases of the circulatory system; Z88.0 Allergy status to penicillin; Z91.040 Latex allergy status; Z86.14 Personal history of Methicillin resistant Staphylococcus aureus infection; Z98.890 Other specified postprocedural states; Z79.899 Other long term (current) drug therapy
CPT/HCPCS: 59812; 86900; 86901; 88305; 86850; J2250; J1100; J2405; J3010; J1885; J2704; J2001

== ENCOUNTER 2022-12-05 14:11 | Emergency (ER) | payer OTHER ==
[2022-12-05 15:34] LABS: Appearance,Urine Clear (Clear); Bacteria,Urine Occasional /hpf; Bilirubin,Urine Negative (Negative); Blood,Urine Negative (Negative); Color,Urine Light Yellow; Glucose,Urine (UA) Negative (Negative); Ketones,Urine 1+ (Negative); Leukocyte Esterase,Urine Trace (Negative); Mucus,Urine Rare /hpf; Nitrite,Urine Negative (Negative); PH, Urine 6.5 (5.0-8.0); Protein,Urine Negative (Negative); RBC,Urine 2 /hpf (0-5); Specific Gravity,Urine 1.016 (1.001-1.035); Squamous Epithelial Cell,Urine 5 /hpf (0-4); Urobilinogen,Urine <2.0 mg/dL (<2.0); WBC,Urine 3 /hpf (0-5)
[2022-12-05 16:00] LABS: Basophils % (A) 0 %; Eosinophils # (A) 0.1 k/uL (0-0.7); Eosinophils % (A) 1 %; HCT 41.6 % (34.0-46.0); HGB 13.9 gm/dL (11.4-16.0); Lymphocytes # (A) 1.3 k/uL (1.0-4.8); Lymphocytes % (A) 18 %; MCH 27.3 pg (25.0-35.0); MCHC 33.5 g/dL (31.0-37.0); MCV 81.5 fL (80.0-100.0); Mean Platelet Volume 7.7; Monocytes # (A) 0.5 k/uL (0-1.0); Monocytes % (A) 7 %; Neutrophils # (A) 5.3 k/uL (1.3-7.7); Neutrophils % (A) 73 %; Platelet Count 186 k/uL (150-450); WBC 7.4 k/uL (3.8-10.6)
[2022-12-05 16:07] LABS: ALT 20 U/L (4-34); AST 26 U/L (14-36); African American GFR (CKD) >90 (>60 ml/min/1.73 sqM); Albumin 4.5 g/dL (3.5-5.0); Alkaline Phosphatase 73 U/L (38-126); Anion Gap 11 mmol/L; Blood Urea Nitrogen 16 mg/dL (7-17); Calcium 9.2 mg/dL (8.4-10.2); Carbon Dioxide 24 mmol/L (22-30); Chloride 103 mmol/L (98-107); Glucose 103 mg/dL (74-99); Lipase 178 U/L (23-300); Non-African American GFR(CKD) >90 (>60 ml/min/1.73 sqM); Potassium 3.8 mmol/L (3.5-5.1); Sodium 138 mmol/L (137-145); Total Bilirubin 0.7 mg/dL (0.2-1.3)
--- NOTE | 2022-12-05 16:11 | ED ---
General Adult HPI - General Chief complaint: Abdominal Pain Stated complaint: Abd Pain Time Seen by Provider: 12/05/22 14:46 Source: patient Mode of arrival: ambulatory Limitations: no limitations - History of Present Illness Initial comments: This is a 26-year-old female with no past medical history presents emergency department for suprapubic abdominal pain. The patient stated that this pain is been present over the last 1 week and is similar to the previous time that she was . The patient did state that she could be however stated that her last menstrual period was about 3 weeks ago. The patient did state that she has been nauseous without vomiting. The patient denied any vaginal bleeding or vaginal discharge. The patient was otherwise resting in bed comfortably. - Related Data Home Medications Medication Instructions Recorded Confirmed No Known Home Medications 12/05/22 12/05/22 Allergies Allergy/AdvReac Type Severity Reaction Status Date / Time latex Allergy Rash/Hives Verified 12/05/22 15:02 Penicillins Allergy Anaphylaxis Verified 12/05/22 15:02 Review of Systems ROS Statement: Those systems with pertinent positive or pertinent negative responses have been documented in the HPI. ROS Other: All systems not noted in ROS Statement are negative. Past Medical History Past Medical History: No Reported History History of Any Multi-Drug Resistant Organisms: None Reported Date of last positivie culture/infection: 06/29/17 MDRO Source:: ABDOMEN Past Surgical History: Section Additional Past Surgical History / Comment(s): 2 c section Past Anesthesia/Blood Transfusion Reactions: No Reported Reaction Past Psychological History: No Psychological Hx Reported Smoking Status: Never smoker Past Alcohol Use History: None Reported Past Drug Use History: None Reported - Past Family History Mother Family Medical History: Hypertension General Exam Limitations: no limitations General appearance: alert, in no apparent distress Head exam: Present: atraumatic, normocephalic, normal inspection Eye exam: Present: normal appearance, PERRL Pupils: Present: normal accommodation ENT exam: Present: normal exam, normal oropharynx, mucous membranes moist Neck exam: Present: normal inspection, full ROM Respiratory exam: Present: normal lung sounds bilaterally Cardiovascular Exam: Present: regular rate, normal rhythm, normal heart sounds GI/Abdominal exam: Present: soft, tenderness (Mild suprapubinc tenderness), normal bowel sounds Extremities exam: Present: normal inspection, full ROM Back exam: Present: normal inspection, full ROM Neurological exam: Present: alert, oriented X3, CN II-XII intact Psychiatric exam: Present: normal affect, normal mood Skin exam: Present: warm, dry Course Vital Signs 12/05/22 12/05/22 12/05/22 14:15 15:53 16:39 Temperature 98.7 F 98.1 F 97.9 F Pulse Rate 89 81 104 H Respiratory 18 18 16 Rate Blood Pressure 134/80 122/76 136/84 O2 Sat by Pulse 99 96 100 Oximetry 12/05/22 18:14 Temperature 98.4 F Pulse Rate 96 Respiratory 18 Rate Blood Pressure 103/67 O2 Sat by Pulse 100 Oximetry Medical Decision Making - Medical Decision Making Was pt. sent in by a medical professional or institution (, PA, EXECUTIVE ASSISTANT TO GENERAL COUNSEL, urgent care, hospital, or correction...) When possible be specific @ -No Did you speak to anyone other than the patient for history (EMS, parent, family, police, friend...)? What history was obtained from this source @ -No Did you review nursing and triage notes (agree or disagree)? Why? @ -I reviewed and agree with nursing and triage notes Were old charts reviewed (outside hosp., previous admission, EMS record, old EKG, old radiological studies, urgent care reports/EKG's, correction records)? Report findings @ -No old charts were reviewed Differential Diagnosis (chest pain, altered mental status, abdominal pain women, abdominal pain men, vaginal bleeding, weakness, fever, dyspnea, syncope, headache, dizziness, GI bleed, back pain, seizure, CVA, palpatations, mental health)? @ -UTI, , appendicitis EKG interpreted by me (3pts min.). @ -None X-rays interpreted by me (1pt min.). @ -None done CT interpreted by me (1pt min.). @ -CT abdomen and pelvis with IV contrast was obtained and was interpreted by myself showing no evidence for acute abdominal process. The appendix is normal. There was no obstructive uropathy. There was impacted fibrotic changes in the uterus. U/S interpreted by me (1pt. min.). @ -None done What testing was considered but not performed or refused? (CT, X-rays, U/S, labs)? Why? @ -None What meds were considered but not given or refused? Why? @ -None Did you discuss the management of the patient with other professionals (professionals i.e. Dr., PA, EXECUTIVE ASSISTANT TO GENERAL COUNSEL, lab, RT, psych nurse, social professionals, eligibility consultant, teacher, crime prevention police officer, casework specialist)? Give summary @ -No Was smoking cessation discussed for >3mins.? @ -No Was critical care preformed (if so, how long)? @ -No Were there social determinants of health that impacted care today? How? (Homelessness, low income, unemployed, alcoholism, drug addiction, transportation, low edu. Level, literacy, decrease access to med. care, [facility], rehab)? @ -No Was there de-escalation of care discussed even if they declined (Discuss DNR or withdrawal of care, Hospice)? DNR status @ -No What co-morbidities impacted this encounter? (DM, HTN, Smoking, COPD, CAD, Cancer, CVA, ARF, Chemo, Hep., AIDS, mental health diagnosis, sleep apnea, morbid obesity)? @ -None Was patient admitted / discharged? Hospital course, mention meds given and route, prescriptions, significant lab abnormalities, going to OR and other pertinent info. @ -The patient was seen and evaluated emergency department. Physical exam, the patient was resting in bed without any acute distress. Vital signs admission were stable. Due to the nature the patient's complaints, laboratory workup was obtained initially to rule out . The patient was not and therefore a CT abdomen and pelvis was obtained and was negative for any acute processes that could explain the patient's suprapubic abdominal tenderness. On evaluation, the patient had only mild tenderness and had a soft abdomen. The patient that of any findings consistent with an etiology of her pain and was stable for discharge home. The patient was advised to continue to monitor symptoms and report back to the emergency department if they became acutely worse. The patient was agreeable to this and all of her questions were answered appropriate. The patient was discharged home in stable condition. Undiagnosed new problem with uncertain prognosis? @ -No Drug Therapy requiring intensive monitoring for toxicity (Heparin, Nitro, Insulin, Cardizem)? @ -No Were any procedures done? @ -No Diagnosis/symptom? @ -Abdominal pain, NOS Acute, or Chronic, or Acute on Chronic? @ -Acute Uncomplicated (without systemic symptoms) or Complicated (systemic symptoms)? @ -Uncomplicated Side effects of treatment? @ -No Exacerbation, Progression, or Severe Exacerbation? @ -No Poses a threat to life or bodily function? How? (Chest pain, [place], [place], pneumonia, PE, COPD, DKA, ARF, appy, cholecystitis, CVA, Diverticulitis, Homicidal, Suicidal, threat to staff... and all critical care pts) @ -No - Lab Data Result diagrams: 12/05/22 15:48 12/05/22 15:48 Lab Results 12/05/22 12/05/22 12/05/22 Range/Units 15:03 15:48 15:48 WBC 7.4 (3.8-10.6) k/uL RBC 5.10 (3.80-5.40) m/uL Hgb 13.9 (11.4-16.0) gm/dL Hct 41.6 (34.0-46.0) % MCV 81.5 (80.0-100.0) fL MCH 27.3 (25.0-35.0) pg MCHC 33.5 (31.0-37.0) g/dL RDW 14.0 (11.5-15.5) % Plt Count 186 (150-450) k/uL MPV 7.7 Neutrophils % 73 % Lymphocytes % 18 % Monocytes % 7 % Eosinophils % 1 % Basophils % 0 % Neutrophils # 5.3 (1.3-7.7) k/uL Lymphocytes # 1.3 (1.0-4.8) k/uL Monocytes # 0.5 (0-1.0) k/uL Eosinophils # 0.1 (0-0.7) k/uL Basophils # 0.0 (0-0.2) k/uL Sodium 138 (137-145) mmol/L Potassium 3.8 (3.5-5.1) mmol/L Chloride 103 (98-107) mmol/L Carbon Dioxide 24 (22-30) mmol/L Anion Gap 11 mmol/L BUN 16 (7-17) mg/dL Creatinine 0.60 (0.52-1.04) mg/dL Est GFR (CKD-EPI)AfAm >90 (>60 ml/min/1.73 sqM) Est GFR (CKD-EPI)NonAf >90 (>60 ml/min/1.73 sqM) Glucose 103 H (74-99) mg/dL Calcium 9.2 (8.4-10.2) mg/dL Magnesium 2.0 (1.6-2.3) mg/dL Total Bilirubin 0.7 (0.2-1.3) mg/dL AST 26 (14-36) U/L ALT 20 (4-34) U/L Alkaline Phosphatase 73 (38-126) U/L Total Protein 8.0 (6.3-8.2) g/dL Albumin 4.5 (3.5-5.0) g/dL Lipase 178 (23-300) U/L HCG, Quant <2.4 mIU/mL Urine Color Light Yellow Urine Appearance Clear (Clear) Urine pH 6.5 (5.0-8.0) Ur Specific [place] 1.016 (1.001-1.035) Urine Protein Negative (Negative) Urine Glucose (UA) Negative (Negative) Urine Ketones 1+ H (Negative) Urine Blood Negative (Negative) Urine Nitrite Negative (Negative) Urine Bilirubin Negative (Negative) Urine Urobilinogen <2.0 (<2.0) mg/dL Ur Leukocyte Esterase Trace H (Negative) Urine RBC 2 (0-5) /hpf Urine WBC 3 (0-5) /hpf Ur Squamous Epith Cells 5 H (0-4) /hpf Urine Bacteria Occasional H (None) /hpf Urine Mucus Rare H (None) /hpf Disposition Clinical Impression: Abdominal pain Disposition: HOME SELF-CARE Condition: Stable Instructions (If sedation given, give patient instructions): Abdominal Pain (ED) Is patient prescribed a controlled substance at d/c from ED?: No Referrals: Dunia Rush DO [Primary Care Provider] - 1-2 days Time of Disposition: 17:30
[2022-12-05 16:23] LABS: HCG,Quantitative Serum <2.4 mIU/mL
--- NOTE | 2022-12-05 17:40 | CT ---
EXAMINATION TYPE: CT abdomen pelvis w con CT DLP: 1026.7 mGycm, Automated exposure control for dose reduction was used. DATE OF EXAM: 12/05/2022 5:16 PM COMPARISON: None. CLINICAL INDICATION:Female, 26 years old with history of Suprapubic abdominal pain; Suprapubic pain TECHNIQUE: Axial CT of the abdomen and pelvis. Sagittal and coronal reformats were created on a Immediately workstation. Contrast used:100 mL of Isovue 300 with IV Contrast, (none if empty) Oral contrast used: without Oral Contrast (none if empty) FINDINGS: LOWER CHEST: Unremarkable ABDOMEN LIVER: Unremarkable GALLBLADDER AND BILE DUCTS: Unremarkable. PANCREAS: Unremarkable. SPLEEN: Unremarkable. ADRENAL GLANDS: Unremarkable. KIDNEYS AND URETERS: No evidence of hydronephrosis or renal calculus. The ureters are unremarkable. PELVIS BLADDER: Unremarkable REPRODUCTIVE: Right graafian follicle. Hyperemic endometrium, suspected underlying 10 mm fibroid. ABDOMEN & PELVIS STOMACH AND BOWEL: No evidence of bowel obstruction. PERITONEUM/RETROPERITONEUM: No evidence of pneumoperitoneum or free fluid. VASCULATURE: No evidence of aortic aneurysm. MUSCULOSKELETAL: No acute osseous abnormalities LYMPH NODES: No gross evidence for lymphadenopathy. SOFT TISSUE/ABDOMINAL WALL: Unremarkable IMPRESSION: 1. No evidence for acute abdominal process. The appendix is normal. 2. No obstructive uropathy. 3. Impacted fibrotic changes in the uterus.
[2022-12-05 18:15] VITALS: BP 103/67; PULSE 96; RESP 18; TEMP 98.4
== END 2022-12-05 18:21 | disposition home or self-care (01) ==
LOC: EC 14:11
DX: R10.9 Unspecified abdominal pain (principal); Z88.0 Allergy status to penicillin; Z91.040 Latex allergy status
CPT/HCPCS: 36415; 80053; 83690; 83735; 85025; 81001; 84702; 74177; 99284; Q9967

== ENCOUNTER → 2022-12-29 | Outpatient (CLI) | payer OTHER ==
--- NOTE | 2022-12-29 17:14 | US ---
EXAMINATION TYPE: US pelvic complete DATE OF EXAM: 12/29/2022 COMPARISON: NONE CLINICAL INDICATION: Female, 27 years old with history of R10.2 PELVIC AND PERINEAL PAIN; pain TECHNIQUE: Transabdominal (TA). Transabdominal sonographic images of the pelvis were acquired. EXAM MEASUREMENTS: Uterus: 8.1 x 2.6 x 4.2 cm Endometrial Stripe: 0.6 cm Right Ovary: 2.6 x 1.2 x 1.6 cm Left Ovary: 2.9 x 2.0 x 1.9 cm 1. Uterus: Anteverted wnl 2. Endometrium: wnl 3. Right Ovary: wnl 4. Left Ovary: wnl 5. Bilateral Adnexa: wnl 6. Posterior cul-de-sac: wnl IMPRESSION: 1. No acute pelvic process. 2. Endometrium appears within normal limits for thickness.
== END | disposition home or self-care (01) ==
LOC: RADUSWWP 14:52
PROVIDERS: ATTEND Family Medicine
DX: R10.2 Pelvic and perineal pain (principal)
CPT/HCPCS: 76856

== ENCOUNTER → 2023-04-10 | Outpatient (CLI) | payer OTHER ==
--- NOTE | 2023-04-10 11:04 | US ---
EXAMINATION TYPE: US abdomen complete DATE OF EXAM: 04/10/2023 COMPARISON: CT 12/05/2022 CLINICAL INDICATION: Female, 27 years old with history of R10.2 PELV AND PERINEAL PAIN R10.813 R10.81 4; Patient is having dull pelvic pain since May. TECHNIQUE: Multiple sonographic images of the abdomen are obtained. FINDINGS: EXAM MEASUREMENTS: Liver Length: 14.8 cm Gallbladder Wall: 0.21 cm CBD: 0.48 cm Spleen: 11.8 cm Right Kidney: 9.8 x 5.3 x 4.1 cm Left Kidney: 10.0 x 4.7 x 4.5 cm FORENSIC SPECIALIST NOTES: Limited due to gas. Pancreas: Most of the body and tail are obscured by bowel gas shadowing. Liver: There is a nonspecific small 7 mm calcification or prominent vascular reflector in the right l iver lobe. Mild increased echogenicity. Gallbladder: Appears wnl Evidence for sonographic Fregoso's sign: No CBD: Appears wnl Spleen: Appears wnl Right Kidney: No hydronephrosis or masses seen Left Kidney: No hydronephrosis or masses seen Upper IVC: Appears wnl Abd Aorta: Appears wnl, iliacs were obscured. IMPRESSION: Correlate for at least mild hepatic steatosis. No gallstones or biliary ductal dilatation.
--- NOTE | 2023-04-10 15:04 | US ---
EXAMINATION TYPE: US transvaginal DATE OF EXAM: 04/10/2023 COMPARISON: CT 12/05/2022, US 12/29/2022 CLINICAL INDICATION: Female, 27 years old with history of R10.2 PELV AND PERINEAL PAIN R10.813 R10.81 4; Patient is having dull pelvic pain since May. Hx 2 C sections, miscarriage, D and C, twin preg trell. A1. TECHNIQUE: Transvaginal (TV). Date of LMP: 04/09/2023 EXAM MEASUREMENTS: Uterus: 7.4 x 4.8 x 3.5 cm Endometrial Stripe: 0.35 cm Right Ovary: 3.3 x 2.1 x 2.1 cm Left Ovary: 3.0 x 1.8 x 2.0 cm 1. Uterus: Anteverted. The myometrium is heterogeneous. Peripheral uterine vessels appear prominent , likely physiologic. Subtle scar noted. 2. Endometrium: 3.5 mm, thin 3. Right Ovary: Normal follicular change. 4. Left Ovary: Normal follicular change. 5. Bilateral Adnexa: Appears wnl 6. Posterior cul-de-sac: Appears wnl IMPRESSION: Thin endometrial stripe. Normal follicular change in the ovaries. scar subtly apparent.
== END | disposition home or self-care (01) ==
LOC: RADUSWWP 07:21
PROVIDERS: ATTEND Family Medicine
DX: R10.2 Pelvic and perineal pain (principal); R10.813 Right lower quadrant abdominal tenderness; R10.814 Left lower quadrant abdominal tenderness
CPT/HCPCS: 76700; 76830

== ENCOUNTER → 2023-08-15 | Outpatient (CLI) | payer BC ==
--- NOTE | 2023-08-15 16:01 | US ---
EXAMINATION TYPE: US venous doppler duplex UE BI DATE OF EXAM: 08/15/2023 COMPARISON: NONE CLINICAL INDICATION: Female, 27 years old with history of M79.602 PAIN IN LEFT ARM; Pain in left arm x 1 day SIDE PERFORMED: Bilateral Right Arm: Appears negative for DVT Left Arm: Appears negative for DVT IMPRESSION: 1. Bilateral Upper extremity ultrasound negative for deep venous thrombosis.
== END | disposition home or self-care (01) ==
LOC: RADUSWWP 14:41
PROVIDERS: ATTEND Family Medicine
DX: M79.602 Pain in left arm (principal)
CPT/HCPCS: 93970

== ENCOUNTER 2023-11-12 11:36 | Outpatient (CLI) | payer BC ==
[2023-11-12 12:16] LABS: Appearance,Urine Clear (Clear); Bilirubin,Urine Negative (Negative); Blood,Urine Negative (Negative); Color,Urine Light Yellow; Glucose,Urine (UA) Negative (Negative); Ketones,Urine 1+ (Negative); Leukocyte Esterase,Urine Small (Negative); Mucus,Urine Rare /hpf; Nitrite,Urine Negative (Negative); PH, Urine 6.5 (5.0-8.0); Protein,Urine Negative (Negative); RBC,Urine <1 /hpf (0-5); Specific Gravity,Urine 1.012 (1.001-1.035); Squamous Epithelial Cell,Urine 3 /hpf (0-4); Urobilinogen,Urine <2.0 mg/dL (<2.0); WBC,Urine 2 /hpf (0-5)
[2023-11-12 12:57] VITALS: BP 134/81; PULSE 97; RESP 16; TEMP 97.7
--- NOTE | 2023-11-20 16:12 | P.MSEPDOC ---
Presenting Problems - Arrival Data Date of Arrival on Unit: 11/12/23 Time of Arrival on Unit: 11:36 Mode of Transport: Wheelchair - Complaint OB-Reason for Admission/Chief Complaint: Pain Comment: Pt complaining of mild cramping and sharp pain near umbilicus. Medical History - Information : 4 Para: 3 Term: 1 : 2 Abortions: Spontaneous or Elective: 1 Number of Living Children: 3 - Gestational Age Gestational Age by ROSALINA (wks/days): 31 Weeks and 1 Days - History Complications: Prior Review of Systems - Review of Systems Constitutional: No problems Breast: No problems ENT: No problems Cardiovascular: No problems Respiratory: No problems Gastrointestinal: No problems Genitourinary: No problems Musculoskeletal: No problems Neurological: No problems Skin: No problems Vital Signs - Temperature Temperature: 97.7 F Temperature Source: Temporal Artery Scan - Pulse Brachial Pulse Rate: 97 Pulse Assessment Method: Automatic Cuff - Respirations Respiratory Rate: 16 Oxygen Delivery Method: Room Air O2 Sat by Pulse Oximetry: 98 - Blood Pressure Right Arm Blood Pressure: 134/81 Blood Pressure Mean: 98 Blood Pressure Source: Automatic Cuff Medical Screen Scoring - Cervical Exam Dilation (cm): 0 Station: -2 Membranes: Intact - Assessment - Baby A Baseline FHR: 150 Heart Rate - NICHD Category: Category I (Normal) NST: Reactive Physician Notification - Physician Notified Physician Notified Date: 11/12/23 Physician Notified Time: 12:40 Physician: Kady Loo New Order Received: Yes - Notification Comment Comment: Dr. Loo called and given report on pt. aware of pt c/o. Urine results readback to Dr. Yip NST. FFN collected with spec exam. Vag exam closed/-2 and soft. Pain complaints described per Orders recieved to d/c pt to home and educate pt to follow up with her DrJessika Maternal Triage Index - Urgent/Priority 2 Urgent Priority 2: Yes Provider Notified: Kady Loo Provider Notified Time: 11:36 Criteria Met for Priority 2: Pt complaining of mild cramping and sharp pain near umbilicus Disposition - Disposition OB Disposition: Discharge to home Discharge Date: 11/12/23 Discharge Time: 12:52 I agree with the RN Medical Screening Exam: Yes Physician's MSE Comment: I have neither seen nor examined the patient Case reviewed; plan agreed upon as documented in EMR&OBIX.: Yes Diagnosis: MATERNAL CARE FOR PROBLEM, UNSP, THIRD * DO NOT USE *
== END 2023-11-12 12:52 | disposition home or self-care (01) ==
LOC: FBPOP 11:36
PROVIDERS: ATTEND Obstetrics & Gynecology
DX: O26.893 Other specified pregnancy related conditions, third trimester (principal); R25.2 Cramp and spasm; R10.33 Periumbilical pain; Z3A.31 31 weeks gestation of pregnancy; Z91.040 Latex allergy status; Z88.0 Allergy status to penicillin
CPT/HCPCS: 59025; 81001; 99213